=== PATIENT | male | born 1955 | race Caucasian/White ===

== ENCOUNTER 2016-09-29 17:12 | Emergency (ER) | payer MEDICARE, OTHER | END 2016-09-29 17:48 | disposition home or self-care (01) | LOC: ER 17:12 | DX: M25.461 Effusion, right knee (principal); I10 Essential (primary) hypertension; M81.0 Age-related osteoporosis without current pathological fracture; F17.210 Nicotine dependence, cigarettes, uncomplicated; Z79.899 Other long term (current) drug therapy | CPT/HCPCS: 96372; J1885 ==